=== PATIENT | female | born 1950 | race Caucasian/White ===

== ENCOUNTER → 2017-11-05 | Day surgery (SDC) | payer MEDICARE ==
[~2017-11-05] VITALS: Ht 154.9 cm; Wt 65.0 kg
[~2017-11-05] MED LIST: *ONDANSETRON 4 MG VIAL PERIprocedural Use ONLY ONE; AMLO5 PO; AMPH1TAB47 PO; BACITRACIN TOP OINT 15 GM TUBE ONE; BUPIVACAINE/EPINEPHRINE 0.25% 50 ML VIAL ONE; BUPR150XL PO; CHLORHEXIDINE GLUCONATE 2 % 1 PACK (2 CLOTHS) TOPICAL PRN; CLINDAMYCIN 900/NS 100 ML IV SCH; DULC5TAB PO; EPINEPHrine HCL (1:1000) 30 MG/30 ML VIAL ONE; EPINEPHrine HCL PF/SF (1:1000) 1 MG/ML AMP I-OCULAR ONE; FAMOTIDINE 20 MG/2 ML VIAL ONE; FENO145T2 PO; HYDR-3516 PO; LABETALOL HCL 100 MG/20 ML VIAL IV ONE; LACTATED RINGER'S 1000 ML IV PRN; LEVO.05 PO; LEXA10TA PO; LIDOCAINE 1%/EPINEPHrine 1:100,000 SOLN 50 ML VIAL ONE; LINA290C PO; METF-758; METH1CHW3; METOPROLOL TARTRATE 25 MG TAB PO PRN; MIDAZOLAM HCL 2 MG/2 ML VIAL ONE; MILN100 PO; PANT40TA3 PO; POVIDONE IODINE 5% (ANTISEPSIS KIT) 4 APPLICATIONS EACH NARE PRN; PROPOFOL 200 MG/20 ML AMP IV ONE; ROPI1TAB PO; SODIUM BICARBONATE 8.4% INJ 50 ML ONE; SODIUM CHLORID 0.9% 500 ML IV PRN; SODIUM CHLORIDE 0.9% INJ 100 ML ONE; TEMA30CA PO
[2017-11-05 09:23] VITALS: TEMP 97.7
--- NOTE | 2017-11-05 09:37 | PD.OP ---
Operative Report Bilateral Blepharochalasis and mild levator ptosis, Right more than left Postoperative Diagnosis: Bilateral Blepharochalasis and mild levator ptosis, Right more than left Procedure: Bilateral Levator plication and blepharoplasties Anesthesia: IV sedation and local Surgeon: Carmine Khan Geoscientist(s): RN Resident Surgeon: none Operation and Findings: Patient's both upper eyelids were marked preoperatively in holding area in sitting position, brought to the OR IV sedation was started and Lidocaine 1% with epi 4 cc, 0.5 cc epi 1:1000, and 1 cc Sodium bicarbonate injected total Prep and drape done Time out completed Patient had a brief period of high blood pressure spike - it was allowed to settle down and the anesthesiologist also gave her some beta freeman. Surgery was started on right side, Marked skin ellipse and underlying orbicularis were excised down to the orbital septum Lower part of the eyelid was placed on suture traction lightly Orbital septum was opened from medial to lateral , exposing the medial and the middle fat pads, The lacrimal gland was avoided. Orbital fat pads were anesthetized first and carefully removed at the surface level without pulling; with low power coag cautery. No active bleeding encountered. Tarsal plate upper border was dissected clean, 5/0 Prolene suture was placed between the tarsal plate edge and levator aponeurosis just below the middle fat pad and gradually tightened while releasing the lower traction suture. One additional suture was placed on either side of this suture. Patient was asked to open and close the eyelids to verify the improvement and range of the levator. Patient did not feel any corneal sensation from the sutures. Orbital septum was approximated with single 5/0 Vicryl and the lid skin was closed with 5/0 plain gut, keeping the medial end long, to be taped to the glabella at the end of surgery. Similar procedure was completed on the left side as well. Both sides had excellent improvement and symmetry. Approx 2 mm elevation was noted from the preoperative position. Patient remained stable, minimal bleeding, no complications, Carmine Khan MD Nov 05, 2017 09:37
[2017-11-05 10:55] VITALS: BP 95/53; PULSE 83; RESP 16; O2SAT 97
== END | disposition home or self-care (01) ==
LOC: PHSDC 06:16
PROVIDERS: ATTEND Plastic Surgery
DX: H02.31 Blepharochalasis right upper eyelid (principal); H02.34 Blepharochalasis left upper eyelid; I10 Essential (primary) hypertension
CPT/HCPCS: 00103; 67904; J0171; J2250; J2405; J7120

== ENCOUNTER 2017-12-24 14:08 | Observation (INO) | payer MEDICARE ==
[~2017-12-24] VITALS: Ht 154.9 cm; Wt 63.6 kg
[~2017-12-24 14:08] MED LIST changes: -*ONDANSETRON 4 MG VIAL PERIprocedural Use ONLY ONE; -BACITRACIN TOP OINT 15 GM TUBE ONE; -BUPIVACAINE/EPINEPHRINE 0.25% 50 ML VIAL ONE; -BUPR150XL PO; -CHLORHEXIDINE GLUCONATE 2 % 1 PACK (2 CLOTHS) TOPICAL PRN; -CLINDAMYCIN 900/NS 100 ML IV SCH; -EPINEPHrine HCL (1:1000) 30 MG/30 ML VIAL ONE; -EPINEPHrine HCL PF/SF (1:1000) 1 MG/ML AMP I-OCULAR ONE; -FAMOTIDINE 20 MG/2 ML VIAL ONE; -LABETALOL HCL 100 MG/20 ML VIAL IV ONE; -LACTATED RINGER'S 1000 ML IV PRN; -LEXA10TA PO; -LIDOCAINE 1%/EPINEPHrine 1:100,000 SOLN 50 ML VIAL ONE; -METOPROLOL TARTRATE 25 MG TAB PO PRN; -MIDAZOLAM HCL 2 MG/2 ML VIAL ONE; -MILN100 PO; -POVIDONE IODINE 5% (ANTISEPSIS KIT) 4 APPLICATIONS EACH NARE PRN; -PROPOFOL 200 MG/20 ML AMP IV ONE; -SODIUM BICARBONATE 8.4% INJ 50 ML ONE; -SODIUM CHLORID 0.9% 500 ML IV PRN; -SODIUM CHLORIDE 0.9% INJ 100 ML ONE; -TEMA30CA PO
[2017-12-24 14:23] VITALS: BP 114/68; PULSE 74; RESP 18; TEMP 98.2; O2SAT 96
--- NOTE | 2017-12-24 15:05 | PD ---
HPI Chief Complaint: Fall Time Seen by Provider: 15:04 Travel History International Travel<30 days: No Contact w/Intl Traveler<30days: No Traveled to known affect area: No History of Present Illness HPI 67-year-old female presents to the emergency department with complaint of right elbow pain, right shoulder pain, right knee pain after tripping over a curb in a parking lot and falling today. Denies hitting her head or loss of consciousness. Denies neck pain or back pain. Denies chest pain, shortness of breath, abdominal pain. Reports nausea without vomiting. Denies paresthesias, loss of sensation to the affected extremities. Rates pain 10/10 especially with movement. Better at rest. Throbbing and aching in sensation. Has not taken any medication or tried any treatments to alleviate her symptoms. Does have her right arm in a self-made sling. History of Raynaud, Lyme disease, fibromyalgia, diabetes type 2 and takes metformin. Allergies to codeine and Ancef. Dr. Edwards is primary care provider. Has no other medical complaints. No other modifying factors or associated signs and symptoms. Patient tripped and fell in a parking lot She reports left elbow pain from fall No head injury or LOC No chest pain or abdominal pain PFSH Past Medical History Blood Disorders: No Anxiety: Yes Cancer: No Cardiovascular Problems: Yes (HYPERLIPIDEMIA) Diabetes: Yes (TYPE II) Patient Takes Glucophage: Yes Diminished Hearing: No Endocrine: Yes Gastrointestinal Disorders: Yes (GERD;GASTROPARESIS; IBS) GERD: Yes Genitourinary: Yes ((pt denies)) Hepatitis: No Hiatal Hernia: No Hypertension: Yes Immune Disorder: Yes (FIBROMYALGIA; REYNAUDS) Medical other: Yes (DYSPHAGIA; HX OF LYME DISEASE) Musculoskeletal: Yes (OA) Neurologic: Yes (DIABETIC NEUROPATHY (pt denies)) Psychiatric: Yes (DEPRESSION;ADD) Reproductive: No Respiratory: Yes (SINUSITIS;SEASONAL ALLERGIES) Immunizations Current: Yes (HEPATITIS) Thyroid Disease: Yes (HYPERTHYROID) Tetanus Vaccination: Unknown ?: Not Menopausal: Yes Past Surgical History Abdominal Surgery: No AICD: No Body Medical Devices: NONE Cardiac Surgery: No Ear Surgery: No Endocrine Surgery: No Eye Surgery: Yes (BILAT YAG) Genitourinary Surgery: No Gynecologic Surgery: Yes (HYSTERECTOMY; ANT.COLPORRHAPHY; REPAIR OF CYSTOCELE) Hysterectomy: Yes Joint Replacement: No Neurologic Surgery: No Oral Surgery: Yes (SINUS SX) Pacemaker: No Thoracic Surgery: No Other Surgery: Yes Social History Alcohol Use: Yes (occ) Tobacco Use: No Substance Use: No Allergies-Medications (Allergen,Severity, Reaction): Coded Allergies: cefazolin (Unverified Allergy, Severe, Burning, 12/24/17) burning on face and head codeine (Unverified Allergy, Severe, hives, 12/24/17) MILD REACTION penicillin G (Unverified Allergy, Severe, ITCHING, 12/24/17) MILD REACTION Reported Meds & Prescriptions Reported Meds & Active Scripts Active Hydrocodone-Acetaminophen 5-325 mg Tab 1 Tab PO Q4H PRN 5 Days Reported Metformin HCl ER (Metformin HCl) 1,000 Mg [id number] Methylphenidate (Methylphenidate HCl) 10 Mg Chew 20 Amphetamine-Dextroamphetamine 15 Mg Tab 15 Mg PO DAILY Avoid late evening doses. Space doses at least 4 to 6 hours if more than once/day dosing. Fenofibrate 145 Mg Tab 145 Mg PO DAILY Dulcolax DR (Bisacodyl) 5 Mg Tabdr 5 Mg PO DAILY PRN Linzess (Linaclotide) 290 Mcg Cap 290 Mcg PO DAILY Pantoprazole (Pantoprazole Sodium) 40 Mg Tab 40 Mg PO BID Norvasc (Amlodipine Besylate) 5 Mg Tab 5 Mg PO DAILY Ropinirole 1 Mg Tab 1 Mg PO BID Synthroid (Levothyroxine Sodium) 50 Mcg Tab 50 Mcg PO DAILY Review of Systems Except as stated in HPI: all other systems reviewed are Neg Physical Exam Narrative GENERAL: Well-nourished, well-developed female patient, in no acute distress SKIN: Warm and dry. HEAD: Atraumatic. Normocephalic. EYES: Pupils equal and round. No scleral icterus. No injection or drainage. ENT: Mucosa pink and moist. Airway patent. NECK: Trachea midline. No midline tenderness on palpation of the cervical spine. Active rotation of the neck greater than 45 to the left and right. CARDIOVASCULAR: Regular rate. RESPIRATORY: No accessory muscle use. GASTROINTESTINAL: Flat. MUSCULOSKELETAL: Right elbow with edema; without erythema or ecchymosis; with tenderness on palpation; with decreased clinical orthoptist strength; unable to assess range of motion secondary to patient guarding; sensory intact; 2+ radial pulse. Right Upper extremity supple and nontense with 2+ radial pulse and sensory intact. Right knee with tenderness on palpation patient to the patellar and lateral aspect; with minimal edema; abrasion noted; without erythema, with ecchymosis; with flexion to 90 and joint stable with negative drawer test. Unable to assess right shoulder range of motion; tenderness on palpation to the right upper scapular area of the back. right lower extremity is supple and nontender with 2+ pedal pulse and sensory intact. No obvious deformities. No clubbing. No cyanosis. No edema. BACK: No midline tenderness on palpation of the cervical, thoracic, lumbar spine. Patient standing at bedside in the room. NEUROLOGICAL: Awake and alert. Oriented 3. No obvious cranial nerve deficits. Motor grossly within normal limits. Normal speech. PSYCHIATRIC: Appropriate mood and affect; insight and judgment normal. Data Data Last Documented VS Vital Signs Date Time Temp Pulse Resp B/P (MAP) Pulse Ox O2 Delivery O2 Flow Rate FiO2 12/24/17 14:23 98.2 74 18 114/68 (83) 96 Orders Orders Humerus (Min 2vws) (12/24/17 ) Elbow, Limited (Ap&Lat) (12/24/17 ) Shoulder, Limited(2vws) (12/24/17 ) Knee, Complete (4vws) (12/24/17 ) Oxycodone-Acetamin 5-325 Mg (Percocet (12/24/17 15:30) Ondansetron Odt (Zofran Odt) (12/24/17 15:30) Splint Or Brace Apply/Monitor (12/24/17 15:29) Sling Cradle Arm (12/24/17 ) Ice/Cold Pack (12/24/17 15:29) Complete Blood Count With Diff (12/24/17 15:41) Comprehensive Metabolic Panel (12/24/17 15:41) Prothrombin Time / Inr (Pt) (12/24/17 15:41) Act Partial Throm Time (Ptt) (12/24/17 15:41) Iv Access Insert/Monitor (12/24/17 15:41) Sodium Chloride 0.9% Flush (Ns Flush) (12/24/17 15:45) Electrocardiogram (12/24/17 15:41) Chest, Single Ap (12/24/17 15:41) Npo After Midnight W/ Po Meds (12/24/17 Dinner) Consult Orthopedic (12/24/17 ) Admit Order (Ed Use Only) (12/24/17 15:52) MDM Medical Decision Making Medical Screen Exam Complete: Yes Emergency Medical Condition: Yes Medical Record Reviewed: Yes Differential Diagnosis Fall, fracture, sprain, contusion, abrasion Narrative Course 67-year-old female with right elbow pain, right shoulder pain, right knee pain after mechanical fall today. Denies hitting her head or loss of consciousness. Denies neck pain or back pain. Right knee x-ray, right elbow x-ray, right humerus x-ray, right shoulder x-ray ordered in triage. 1525: Right elbow x-ray concludes comminuted and markedly displaced/ intra-articular fracture of the olecranon. Right humerus x-ray, right knee x- ray, right shoulder x-ray are all unremarkable. Findings discussed with the patient. 1527: Call placed to on-call orthopedic surgeon. 1540: I spoke woptDr. Tammi Simeon's, PA. Splint ordered. Preop orders ordered. 1547: I spoke with Dr. Langston, [facility] and report was given for patient admission. Physician Communication Physician Communication Dr. Langston, [facility] CLAIR CamachoC (Dr. Cadena) Diagnosis Primary Impression: Fall Qualified Codes: W19.XXXA - Unspecified fall, initial encounter Additional Impressions: Elbow fracture, right Qualified Codes: S42.401A - Unspecified fracture of lower end of right humerus , initial encounter for closed fracture Contusion of right knee Qualified Codes: S80.01XA - Contusion of right knee, initial encounter Right shoulder injury Qualified Codes: S49.91XA - Unspecified injury of right shoulder and upper arm , initial encounter Admitting Information Admitting Physician Requests: Observation Nathalie Hamm Dec 24, 2017 15:05
--- NOTE | 2017-12-24 15:12 | RADRPT ---
EXAM DATE/TIME: 12/24/2017 14:44 [facility] COMPARISON: No previous studies available for comparison. INDICATIONS : Fall. Right elbow pain. MEDICAL HISTORY : None. SURGICAL HISTORY : None. ENCOUNTER: Initial ACUITY: 1 day PAIN SCORE: 10/10 LOCATION: Right elbow, olecranon FINDINGS: Two view examination of the right humerus demonstrates no evidence of fracture or dislocation. Bony mineralization is normal. The soft tissue structures are intact. CONCLUSION: Intact right humerus. Florentino Javier MD on December 24, 2017 at 15:10 Board Certified Radiologist. This report was verified electronically.
--- NOTE | 2017-12-24 15:14 | RADRPT ---
EXAM DATE/TIME: 12/24/2017 14:47 [facility] COMPARISON: No previous studies available for comparison. INDICATIONS : Fall. Right elbow pain. MEDICAL HISTORY : None. SURGICAL HISTORY : None. ENCOUNTER: Initial ACUITY: 1 day PAIN SCORE: 10/10 LOCATION: Right elbow, olecranon FINDINGS: Comminuted fracture is seen of the olecranon. There are 2 main fracture fragments and the largest has approximately 3.5 cm of proximal displacement. Proximal radius and distal humerus are intact. No sub luxation. CONCLUSION: Comminuted and markedly displaced/ intra-articular fracture of the olecranon. Florentino Javier MD on December 24, 2017 at 15:11 Board Certified Radiologist. This report was verified electronically.
--- NOTE | 2017-12-24 15:15 | RADRPT ---
EXAM DATE/TIME: 12/24/2017 14:55 [facility] COMPARISON: No previous studies available for comparison. INDICATIONS : Fall. Right elbow pain radiating proximally. MEDICAL HISTORY : None. SURGICAL HISTORY : None. ENCOUNTER: Initial ACUITY: 1 day PAIN SCORE: 10/10 LOCATION: Right elbow, olecranon FINDINGS: Two view examination of the right shoulder demonstrates no evidence of fracture or dislocation. The glenohumeral and acromioclavicular joints are maintained. Bony mineralization is normal. CONCLUSION: Intact right shoulder. Florentino Javier MD on December 24, 2017 at 15:12 Board Certified Radiologist. This report was verified electronically.
--- NOTE | 2017-12-24 15:15 | RADRPT ---
EXAM DATE/TIME: 12/24/2017 15:02 [facility] COMPARISON: No previous studies available for comparison. INDICATIONS : Fell today at the store. MEDICAL HISTORY : None. SURGICAL HISTORY : None. ENCOUNTER: Initial ACUITY: 1 day PAIN SCORE: 5/10 LOCATION: Right knee FINDINGS: Four view examination of the right knee demonstrates no evidence of fracture or dislocation. Bony mi neralization is normal. The articular surfaces are intact. The suprapatellar soft tissues have a no rmal configuration. CONCLUSION: Intact right knee. Florentino Javier MD on December 24, 2017 at 15:13 Board Certified Radiologist. This report was verified electronically.
[2017-12-24] MEDS ORDERED: oxyCODONE/ACETAMINOPHEN 5 MG/325 MG TAB PO ONE (15:30)
[2017-12-24] MEDS ORDERED: ONDANSETRON ODT 4 MG TAB PO ONE (15:30)
[2017-12-24] MEDS ORDERED: SODIUM CHLORIDE 0.9% FLUSH 10 ML FLUSH IV FLUSH PRN ×2 (15:45→16:00)
[2017-12-24] MEDS ORDERED: SODIUM CHLOR 0.9% 1000 ML INJ 1,000 ML IV SCH ×2 (15:53→23:00)
[2017-12-24] MEDS ORDERED: METF500T PO (16:00)
[2017-12-24] MEDS ORDERED: MAGNESIUM HYDROXIDE SUSP 30 ML CUP PO PRN (16:00)
[2017-12-24] MEDS ORDERED: NALOXONE HCL 0.4 MG/ML AMP IV PUSH PRN (16:00)
[2017-12-24] MEDS ORDERED: BISACODYL EC 5 MG TABEC PO PRN (16:00)
[2017-12-24] MEDS ORDERED: ONDANSETRON HCL 4 MG/2 ML VIAL IVP PRN (16:00)
[2017-12-24] MEDS ORDERED: ACETAMINOPHEN 325 MG TAB PO PRN (16:00)
[2017-12-24] MEDS ORDERED: ACETAMINOPHEN/HYDROcodone 325 MG/5 MG TAB PO PRN (16:00)
--- NOTE | 2017-12-24 16:03 | HHI.HP ---
HPI Service [facility] Hospitalists Primary Care Physician Robert Edwards MD Admission Diagnosis Fall, right olecranon fracture Chief Complaint: shoulder and knee pain after fall Travel History International Travel<30 Days: No Contact w/Intl Traveler <30 Da: No Traveled to Known Affected Are: No History of Present Illness This is a 67 year old female patient with past medical history which includes fibromyalgia, Lyme disease status post treatment, Jaleel's syndrome, attention deficit disorder, constipation, irritable bowel syndrome, GERD, restless leg syndrome, diabetes mellitus type 2. Patient was in her normal state of health today walking through the parking lot to go shopping tripped over a curb stop falling on her right side. After the fall patient experienced pain in her right shoulder, arm and knee. Patient presented to the emergency department for further evaluation and treatment. Patient rates her pain 10 out of 10 initially reports it is improved after PO Percocet. Patient describes the pain as an aching throbbing sensation. Patient denies any loss of sensation, paresthesias, chest pain, palpitations, SOB, fevers or chills. X-ray right elbow reveals communicated and markedly displaced/ intra- articular fracture of the olecranon Review of Systems Constitutional: DENIES: Fatigue, Fever, Chills Respiratory: DENIES: Cough, Sputum production, Shortness of breath Cardiovascular: DENIES: Chest pain, Palpitations, Dyspnea on Exertion Gastrointestinal: DENIES: Abdominal pain, Nausea, Vomiting Neurologic: DENIES: Headache, Localized weakness, Speech Problems Psychiatric: DENIES: Anxiety, Confusion, Depression Past Family Social History Past Medical History fibromyalgia, Lyme disease status post treatment, Jaleel's syndrome, attention deficit disorder, constipation, irritable bowel syndrome, GERD, restless leg syndrome, diabetes mellitus type 2 Past Surgical History Cystocele repair A-P Colporrhaphy pelvic repair Hysterectomy Colonoscopy Sinus surgery Reported Medications Hydrocodone-Acetaminophen 5-325 mg Tab 1 Tab PO Q4H PRN 5 Days Metformin (Metformin HCl) 500 Mg Tab 500 Mg PO BIDPC Amphetamine-Dextroamphetamine 15 Mg Tab 15 Mg PO DAILY Avoid late evening doses. Space doses at least 4 to 6 hours if more than once/day dosing. Fenofibrate 145 Mg Tab 145 Mg PO DAILY Dulcolax DR (Bisacodyl) 5 Mg Tabdr 5 Mg PO DAILY PRN Linzess (Linaclotide) 290 Mcg Cap 290 Mcg PO DAILY Pantoprazole (Pantoprazole Sodium) 40 Mg Tab 40 Mg PO DAILY Norvasc (Amlodipine Besylate) 5 Mg Tab 5 Mg PO DAILY Ropinirole 1 Mg Tab 1 Mg PO HS Synthroid (Levothyroxine Sodium) 50 Mcg Tab 50 Mcg PO DAILY Allergies: Coded Allergies: cefazolin (Unverified Allergy, Severe, Burning, 12/24/17) burning on face and head codeine (Unverified Allergy, Severe, hives, 12/24/17) MILD REACTION penicillin G (Unverified Allergy, Severe, ITCHING, 12/24/17) MILD REACTION Family History reviewed and noncontributory Social History Tobacco use: occasional cigar socially ETOH use: socially not on a daily basis Denies illicit drug use. Does use medical marijuana Physical Exam Vital Signs Vital Signs Date Time Temp Pulse Resp B/P (MAP) Pulse Ox O2 Delivery O2 Flow Rate FiO2 12/24/17 14:23 98.2 74 18 114/68 (83) 96 Physical Exam GENERAL: This is a well-nourished, well-developed patient, in no apparent distress. SKIN: sling right upper arm, abrasion right knee HEAD: Atraumatic. Normocephalic. No temporal or scalp tenderness. EYES: Extraocular motions intact. No scleral icterus. No injection or drainage. CARDIOVASCULAR: Regular rate and rhythm RESPIRATORY: Clear to auscultation. Breath sounds equal bilaterally. GASTROINTESTINAL: Abdomen soft, non-tender, nondistended. No hepato-splenomegaly , or palpable masses. No guarding. MUSCULOSKELETAL: Extremities without clubbing, cyanosis, or edema. No joint tenderness, effusion, or edema noted. No calf tenderness. Negative Homans sign bilaterally. NEUROLOGICAL: Awake and alert. No focal deficits. Motor and sensory grossly within normal limits. Five out of 5 muscle strength in all muscle groups, with the exception of right upper extremity in sling. Normal speech. Imaging Last Impressions Shoulder X-Ray 12/24/17 0000 Signed Impressions: Service Date/Time: Sunday, December 24, 2017 14:55 - CONCLUSION: Intact right shoulder. Florentino Javier MD Knee X-Ray 12/24/17 0000 Signed Impressions: Service Date/Time: Sunday, December 24, 2017 15:02 - CONCLUSION: Intact right knee. Florentino Javier MD Humerus X-Ray 12/24/17 0000 Signed Impressions: Service Date/Time: Sunday, December 24, 2017 14:44 - CONCLUSION: Intact right humerus. Florentino Javier MD Elbow X-Ray 12/24/17 0000 Signed Impressions: Service Date/Time: Sunday, December 24, 2017 14:47 - CONCLUSION: Comminuted and markedly displaced/ intra-articular fracture of the olecranon. Florentino Javier MD Capjameson VTE Risk Assessment Caprini VTE Risk Assessment: Mod/High Risk (score >= 2) Caprini Risk Assessment Model Point Value = 1 Point Value = 2 Point Value = 3 Point Value = 5 Age 41-60 Minor surgery BMI > 25 kg/m2 Swollen legs Varicose veins or History of unexplained or recurrent spontaneous Oral contraceptives or hormone replacement Sepsis (< 1 month) Serious lung disease, including pneumonia (< 1 month) Abnormal pulmonary function Acute myocardial infarction Congestive heart failure (< 1 month) History of inflammatory bowel disease Medical patient at bed rest Age 61-74 Arthroscopic surgery Major open surgery (> 45 min) Laparoscopic surgery (> 45 min) Malignancy Confined to bed (> 72 hours) Immobilizing plaster cast Central venous access Age >= 75 History of VTE Family history of VTE Factor V Leiden Prothrombin [id number] Lupus anticoagulant Anticardiolipin antibodies Elevated serum homocysteine Heparin-induced thrombocytopenia Other congenital or acquired thrombophilia Stroke (< 1 month) Elective arthroplasty Hip, pelvis, or leg fracture Acute spinal cord injury (< 1 month) Prophylaxis Regimen Total Risk Factor Score Risk Level Prophylaxis Regimen 0-1 Low Early ambulation 2 Moderate Order ONE of the following: *Sequential Compression Device (SCD) *Heparin 5000 units SQ BID 3-4 Higher Order ONE of the following medications: *Heparin 5000 units SQ TID *Enoxaparin/Lovenox 40 mg SQ daily (WT < 150 kg, CrCl > 30 mL/min) *Enoxaparin/Lovenox 30 mg SQ daily (WT < 150 kg, CrCl > 10-29 mL/min) *Enoxaparin/Lovenox 30 mg SQ BID (WT < 150 kg, CrCl > 30 mL/min) AND/OR *Sequential Compression Device (SCD) 5 or more Highest Order ONE of the following medications: *Heparin 5000 units SQ TID (Preferred with Epidurals) *Enoxaparin/Lovenox 40 mg SQ daily (WT < 150 kg, CrCl > 30 mL/min) *Enoxaparin/Lovenox 30 mg SQ daily (WT < 150 kg, CrCl > 10-29 mL/min) *Enoxaparin/Lovenox 30 mg SQ BID (WT < 150 kg, CrCl > 30 mL/min) AND *Sequential Compression Device (SCD) Assessment and Plan Problem List: (1) Olecranon fracture ICD Codes: S52.023A - Displaced fracture of olecranon process without intraarticular extension of unspecified ulna, initial encounter for closed fracture Plan: Right olecranon process fracture Fall X-ray right elbow reveals communicated and markedly displaced/ intra- articular fracture of the olecranon currently in sling consult to orthopedic surgery plan surgical intervention in AM NPO after midnight Gatzke and Morphine IV as needed for pain Right Humerus X Ray: intact right humerus Right Shoulder X ray: Intact right shoulder Right knee X ray: Intact right knee Diabetes mellitus continue home metformin Diabetic diet NPO after midnight Acc checks ACHS with SSI coverage Raynaud syndrome continue home Amlodipine 5mg PO daily GERD continue home Protonix 40 mg PO daily IBS continue home Linzess Hypothyroidism Continue home Levothyroxine 50 mcg PO daily Restless leg syndrome Continue home Ropinirole DVT prophylaxis with SCDs (2) Raynauds syndrome ICD Codes: I73.00 - Raynaud's syndrome without gangrene (3) GERD (gastroesophageal reflux disease) ICD Codes: K21.9 - Gastro-esophageal reflux disease without esophagitis (4) IBS (irritable bowel syndrome) ICD Codes: K58.9 - Irritable bowel syndrome without diarrhea (5) Diabetes mellitus ICD Codes: E11.9 - Type 2 diabetes mellitus without complications (6) Hypothyroidism ICD Codes: E03.9 - Hypothyroidism, unspecified Maritza Mcclure Dec 24, 2017 16:03
[2017-12-24] MEDS ORDERED: GLUCAGON 1 MG/ML VIAL OTHER PRN (16:15)
[2017-12-24] MEDS ORDERED: DEXTROSE 50% IN WATER 50 ML VIAL(D50) IV PUSH PRN (16:15)
[2017-12-24] MEDS ORDERED: LEVA500T33 PO (16:52)
[2017-12-24] MEDS ORDERED: CYMB30CA PO (16:52)
[2017-12-24] MEDS: INSULIN ASPART SUPPLEMENTAL SCALE SQ SCH ×2 (17:00→21:00)
--- NOTE | 2017-12-24 17:00 | RADRPT ---
EXAM DATE/TIME: 12/24/2017 16:33 [facility] COMPARISON: No previous studies available for comparison. INDICATIONS : Evaluate for pneumonia, pneumothorax, and or communicable disease. MEDICAL HISTORY : None. SURGICAL HISTORY : None. ENCOUNTER: Initial ACUITY: 1 day PAIN SCORE: 0/10 LOCATION: Bilateral chest FINDINGS: A single view of the chest demonstrates the lungs to be symmetrically aerated without evidence of mas s, infiltrate or effusion. The cardiomediastinal contours are unremarkable. Osseous structures are intact. CONCLUSION: No evidence of acute cardiopulmonary disease. Florentino Javier MD on December 24, 2017 at 16:57 Board Certified Radiologist. This report was verified electronically.
[2017-12-24 17:04] VITALS: BP 112/57; PULSE 80; RESP 16; O2SAT 96
[2017-12-24 17:30] LABS: AUTOMATED NEUTROPHIL # 8.2 TH/MM3 (1.8-7.7); BASOPHIL # 0.1 TH/MM3 (0-0.2); BASOPHIL % 0.6 % (0.0-2.0); EOSINOPHIL # 0.1 TH/MM3 (0-0.4); EOSINOPHIL % 0.5 % (0.0-4.0); HEMATOCRIT 38.1 % (35.0-46.0); HEMOGLOBIN 13.1 GM/DL (11.6-15.3); LYMPH % 12.4 % (9.0-44.0); LYMPHOCYTE # 1.2 TH/MM3 (1.0-4.8); MEAN CELL VOLUME 94.5 FL (80.0-100.0); MEAN CORPUSCULAR HEMOGLOBIN 32.6 PG (27.0-34.0); MEAN CORPUSCULAR HGB CONC 34.5 % (32.0-36.0); MEAN PLATELET VOLUME 9.5 FL (7.0-11.0); MONO % 4.7 % (0.0-8.0); MONOCYTE # 0.5 TH/MM3 (0-0.9); NEUT % 81.8 % (16.0-70.0); PLATELET COUNT 236 TH/MM3 (150-450); RED BLOOD COUNT 4.03 MIL/MM3 (4.00-5.30); RED CELL DISTRIBUTION WIDTH 13.4 % (11.6-17.2)
[2017-12-24] MEDS ORDERED: ROSU1TAB4 PO (17:32)
[2017-12-24] MEDS: metFORMIN HCL 500 MG TAB PO SCH (17:36)
[2017-12-24] MEDS: MORPHINE SULFATE 4 MG/ML INJ IV PUSH PRN ×2 (17:37→21:23)
[2017-12-24 17:43] LABS: INTERNATIONAL NORMALIZED RATIO 1.2 RATIO; PROTHROMBIN TIME - PATIENT 12.5 SEC (9.8-11.6)
[2017-12-24 17:56] LABS: ALBUMIN 3.7 GM/DL (3.4-5.0); AST (GOT) 70 U/L (15-37); BICARBONATE 26.9 MEQ/L (21.0-32.0); BLOOD UREA NITROGEN 16 MG/DL (7-18); CHLORIDE 106 MEQ/L (98-107); CREATININE 0.83 MG/DL (0.50-1.00); GLOMERULAR FILTRATION RATE 69 ML/MIN (>89); GLUCOSE,RANDOM 109 MG/DL (74-106); SODIUM (NA) 139 MEQ/L (136-145)
[2017-12-24 18:01] LABS: ALKALINE PHOSPHATASE 88 U/L (45-117); ALT (GPT) 35 U/L (10-53); TOTAL BILIRUBIN ADULT 0.3 MG/DL (0.2-1.0); TOTAL PROTEIN 6.8 GM/DL (6.4-8.2)
[2017-12-24 20:05] VITALS: BP 114/57; PULSE 84; RESP 17; TEMP 98.3; O2SAT 97
[2017-12-24] MEDS ORDERED: DOCUSATE SODIUM 50 MG/SENNA 8.6 MG TAB PO SCH (21:00)
[2017-12-24] MEDS ORDERED: CHLORHEXIDINE GLUCONATE 2 % 1 PACK (2 CLOTHS) TOPICAL PRN (21:15)
[2017-12-24] MEDS ORDERED: METOPROLOL TARTRATE 25 MG TAB PO PRN (21:15)
[2017-12-24] MEDS ORDERED: LACTATED RINGER'S 1000 ML IV PRN (21:15)
[2017-12-24] MEDS ORDERED: SODIUM CHLORID 0.9% 500 ML IV PRN (21:15)
[2017-12-24] MEDS ORDERED: POVIDONE IODINE 5% (ANTISEPSIS KIT) 4 APPLICATIONS EACH NARE PRN (21:15)
[2017-12-24] MEDS: SODIUM CHLORIDE 0.9% FLUSH 10 ML FLUSH IV FLUSH SCH (21:21)
[2017-12-24] MEDS: ACETAMINOPHEN/HYDROcodone 325 MG/10 MG TAB PO PRN (22:52)
[2017-12-25 00:10] VITALS: BP 101/53; PULSE 71; RESP 16; TEMP 97.7; O2SAT 95
[2017-12-25] MEDS: MORPHINE SULFATE 4 MG/ML INJ IV PUSH PRN ×2 (04:22→15:15)
[2017-12-25 05:00] VITALS: BP 108/59; PULSE 65; RESP 17; TEMP 97.6; O2SAT 98
[2017-12-25] MEDS ORDERED: LEVOTHYROXINE SODIUM 50 MCG TAB PO SCH (06:00)
--- NOTE | 2017-12-25 06:40 | PD.ORT.PN ---
Subjective Subjective Remarks s/p fall in parking lot right elbow pain. reports right knee pain but minimal. Objective Vitals Vital Signs Date Time Temp Pulse Resp B/P (MAP) Pulse Ox O2 Delivery O2 Flow Rate FiO2 12/25/17 00:10 97.7 71 16 101/53 (69) 95 12/24/17 20:05 98.3 84 17 114/57 (76) 97 12/24/17 17:14 12/24/17 17:04 80 16 112/57 (75) 96 Room Air 12/24/17 14:23 98.2 74 18 114/68 (83) 96 Result Diagram: 12/24/17 1600 12/24/17 1600 Other Results Laboratory Tests Test 12/24/17 16:00 Prothromb Time International Ratio 1.2 RATIO Prothrombin Time 12.5 SEC (9.8-11.6) Imaging Last 24 hours Impressions Chest X-Ray 12/24/17 1541 Signed Impressions: Service Date/Time: Sunday, December 24, 2017 16:33 - CONCLUSION: No evidence of acute cardiopulmonary disease. Florentino Javier MD Objective Remarks RUE: +long arm splint. NVI with good motion of fingers and wrist. RLE: full motion of knee. bruising over patella. nontender. Assessment & Plan Assessment and Plan 1) Right Olecranon Fx -npo -consents -surgery today with Tammi -possibly home later today if doing well post op Jayden Trimble/Spa Supervisor DAVID Dec 25, 2017 06:40
[2017-12-25] MEDS ORDERED: HYDR-3580 PO (06:41)
[2017-12-25] MEDS ORDERED: GENTAMICIN SULFATE 80 MG/2 ML VIAL ONE (07:19)
[2017-12-25] MEDS ORDERED: VANCOMYCIN HCL 1000 MG VIAL ONE (07:20)
[2017-12-25] MEDS ORDERED: KETAMINE HCL 500 MG/10 ML VIAL ONE (07:20)
[2017-12-25 07:24] LABS: AUTOMATED NEUTROPHIL # 6.1 TH/MM3 (1.8-7.7); BASOPHIL % 0.4 % (0.0-2.0); EOSINOPHIL # 0.1 TH/MM3 (0-0.4); EOSINOPHIL % 1.2 % (0.0-4.0); HEMATOCRIT 37.1 % (35.0-46.0); HEMOGLOBIN 12.9 GM/DL (11.6-15.3); LYMPH % 28.9 % (9.0-44.0); LYMPHOCYTE # 2.8 TH/MM3 (1.0-4.8); MEAN CELL VOLUME 95.4 FL (80.0-100.0); MEAN CORPUSCULAR HEMOGLOBIN 33.3 PG (27.0-34.0); MEAN CORPUSCULAR HGB CONC 34.9 % (32.0-36.0); MEAN PLATELET VOLUME 9.4 FL (7.0-11.0); MONO % 6.5 % (0.0-8.0); MONOCYTE # 0.6 TH/MM3 (0-0.9); PLATELET COUNT 204 TH/MM3 (150-450); RED BLOOD COUNT 3.89 MIL/MM3 (4.00-5.30); RED CELL DISTRIBUTION WIDTH 13.5 % (11.6-17.2); WHITE BLOOD COUNT 9.7 TH/MM3 (4.0-11.0)
[2017-12-25] MEDS ORDERED: CLINDAMYCIN PHOS 600 MG/4 ML VIAL ONE (07:36)
--- NOTE | 2017-12-25 07:48 | MB ---
cc: Kai Cadena MD DATE: 12/25/2017 REASON FOR CONSULTATION: Right olecranon fracture CONSULTING PHYSICIAN: Dr. Langston. HISTORY OF PRESENT ILLNESS: The patient is a 67-year-old female who had a fall. She was going shopping, when she tripped over a curb. She landed on her right side. She had a small abrasion on her right knee. She landed mostly on her right elbow. She had immediate right elbow pain. She presented to the Emergency Room where x-rays revealed a displaced right olecranon fracture. She is currently awake and alert, on the orthopedic floor. Her main complaint is her right elbow. Pain is worse with movement and is improved with rest. PAST MEDICAL HISTORY: Fibromyalgia, history of Lyme disease, ADHD, irritable bowel syndrome, reflux, and type 2 diabetes. PAST SURGICAL HISTORY: Cystocele repair, hysterectomy, colonoscopy, and sinus surgery. MEDICATIONS: 1. Hydrocodone 2. Metformin. 3. Nifedipine. 4. Dulcolax. 5. Pantoprazole. 6. Norvasc. 7. Synthroid. ALLERGIES: CEFAZOLIN, CODEINE, AND PENICILLIN. SOCIAL HISTORY: The patient drinks alcohol socially. She uses medical marijuana. She smokes occasional cigars. FAMILY HISTORY: Noncontributory. She denies familial medical problems. REVIEW OF SYSTEMS: The patient denies headache, visual changes, neck pain, chest pain, shortness of breath, abdominal pain, nausea, vomiting, recent weight loss, fevers or chills, numbness or tingling in the extremities. She complains of right elbow pain. The pain is worse with movement. LABORATORY DATA: The patient has a white blood cell count of 10.0, hematocrit of 38.1, and platelet count of 236. INR is 1.2. BUN is 16 and creatinine 0.83. X-RAY STUDIES: X-rays of right elbow were reviewed. X-rays reveal a comminuted right olecranon fracture. There is significant displacement. PHYSICAL EXAMINATION: GENERAL: The patient is a pleasant 67-year-old female. She is awake. She is alert and oriented x 3. She appears well-developed, well-nourished. VITAL SIGNS: Temperature 97.6, pulse 65, respirations 17, blood pressure 108/59, O2 saturations 98% on room air. HEENT: Head: The patient is normocephalic. Pupils are equal. NECK: Soft, nontender. The trachea is in the midline. ABDOMEN: Soft, nontender, and nondistended. EXTREMITIES: Examination of her right arm reveals no tenderness in her shoulder, wrist or fingers. She has intact sensation in all fingers. She has good capillary refill in all fingers. Radial pulse is palpable. She has tenderness to palpation over the elbow. Forearm compartments are soft. Examination of her left arm reveals no pain with shoulder, elbow and wrist motion. She has intact sensation in all fingers. She has good capillary refill at fingers. Skin is intact. Radial pulse is palpable. Examination of her bilateral lower extremities reveals no significant pain with hip, knee or ankle motion. Sensation is intact to both feet. She has good capillary refill in both feet. She does have a superficial abrasion of her right anterior knee. IMPRESSION: 1. Diabetes. 2. Displaced right olecranon fracture. 3. Fibromyalgia. PLAN: The treatment options were discussed with the patient. At this point, I would recommend open reduction and internal fixation of right olecranon with possible allograft bone grafting. Risks of surgery include bleeding, infection, injuries to arteries, nerves or blood vessels, nonunion, malunion, painful hardware, loss of elbow motion, wound complications, need for hardware removal, as well as medical complications associated with anesthesia. All questions were answered. I will plan on surgery today. A mid-level provider in my office, nurse practitioner or PA, may see this patient on a follow-up basis and continue to implement the objective of this plan including: Starting or adjusting medications, injections of muscle, tendon, bursa or joints, cast application, orthotic or brace application, physical therapy, further radiographic studies including x-ray, MRI, CT, ultrasounds or bone scan, vascular studies, neurologic studies, or other specialist consultations, and proceeding with surgical management as appropriate. MD JEFFY Wise/CHAIM , 07:23 AM , 07:46 AM
[2017-12-25 07:54] LABS: BICARBONATE 28.6 MEQ/L (21.0-32.0); CALCIUM 8.7 MG/DL (8.5-10.1); CREATININE 0.73 MG/DL (0.50-1.00)
[2017-12-25] MEDS: INSULIN ASPART SUPPLEMENTAL SCALE SQ SCH ×3 (08:00→17:00)
--- NOTE | 2017-12-25 08:08 | EKG ---
Date Performed: 12/24/2017 Time Performed: 16:58:11 PTAGE: 67 years EKG: Sinus rhythm NORMAL ECG PREVIOUS TRACING : 02/16/2014 11.26 DOCTOR: Rocky Almendarez Interpretating Date/Time 12/25/2017 08:06:24
[2017-12-25] MEDS ORDERED: FENOFIBRATE 145 MG TAB PO SCH (09:00)
[2017-12-25] MEDS ORDERED: [UNRECOGNIZED DRUG - OTHER] PO SCH (09:00)
[2017-12-25] MEDS: metFORMIN HCL 500 MG TAB PO SCH ×2 (09:00→18:21)
[2017-12-25] MEDS ORDERED: amLODIPine BESYLATE 5 MG TAB PO SCH (09:00)
[2017-12-25] MEDS ORDERED: NON-FORMULARY DRUG (Linaclotide (Linzess) 290 MCG) PO SCH (09:00)
[2017-12-25] MEDS ORDERED: DEXTROAMPHETAMINE/AMPHETAMINE 5 MG TAB PO SCH (09:00)
[2017-12-25] MEDS: SODIUM CHLORIDE 0.9% FLUSH 10 ML FLUSH IV FLUSH SCH (09:00)
[2017-12-25] MEDS ORDERED: DOCUSATE SODIUM 50 MG/SENNA 8.6 MG TAB PO SCH (09:00)
[2017-12-25] MEDS ORDERED: PANTOPRAZOLE SOD 40 MG DELAYED RELEASE TAB PO SCH (09:00)
[2017-12-25] MEDS ORDERED: Post-op Orders (for Pharmacy) XX ONE (09:15)
--- NOTE | 2017-12-25 09:15 | PD.OP ---
cc: Kai Chen MD Operative Report Date of Surgery: Dec 25, 2017 Preoperative Diagnosis: Comminuted right olecranon fracture Postoperative Diagnosis: Procedure: Open reduction internal fixation right olecranon Surgeon: Kai Chen Case Coordinator(s): MARIA LUISA Erazo PA-C The surgical procedure was assisted by my physician assistant department manager. My P.A. presence was necessary throughout this case for the manipulation and positioning of the surgical extremity. My P.A. was assisting me throughout the duration of this procedure. The skill set of a physician assistant department manager was medically necessary to complete this procedure. During the surgical case the surgical training specialist was working at the back table and the physician assistant department manager was directly assisting me. Operation and Findings: Implants used: Synthes Patient was seen and evaluated preoperatively. Patient was found to have a displaced comminuted intra-articular right olecranon fracture. The risk and benefits of the surgery were discussed in depth and informed consent was obtained. Risk of surgery include bleeding, infection, painful hardware, wound , case, elbow stiffness, loss of motion, elbow arthritis, injuries to arteries nerves or blood vessels, weakness and numbness of hand, as well as medical complications associated with general anesthesia. All questions were answered. Patient was brought to operating room. IV sedation and anesthesia were administered. Patient was placed into a lateral decubitus position. Timeout procedure was performed. IV antibiotics were administered prior to incision. The operative arm was prepped with alcohol followed by Hibiclens and draped in usual sterile fashion. Procedure began with a 5 inch incision over the olecranon. Subcutaneous tissue dissected with Bovie. Fracture site was visualized. Fascia was elevated around the fracture site. There was mild comminution of the fracture site. Fracture fragments were gently manipulated. There was depression of the articular surface. The articular surface was elevated with a freer elevator. Cancellus bone chips were packed underneath the articular surface for distal support. A fracture tenaculum was used to aid in reduction. Multiple K wires result provisional fixation. A Synthes proximal plate was selected. Plate was provisionally held with K wires 3.5 cortical screws were used to compress plate to bone. Multiple cortical screws were placed in the ulna shaft. Multiple locking screws were placed in the proximal ulna. All screws were predrilled and premeasured for appropriate length. K wires were removed. Final fluoroscopy revealed excellent of fractures well-placed hardware. Articular surface appeared to be in near anatomic alignment. Wound was now thoroughly irrigated. Additional #2 FiberWire suture was placed through the triceps tendon and sutured to the plate for additional stability. Incision was now closed with #1 Vicryl, 3-0 Vicryl, and dylan. Sterile dressings were applied. Patient's placed a well molded well-padded splint. Patient was transferred to recovery in stable condition. Kai Chen MD Dec 25, 2017 09:15
[2017-12-25] MEDS ORDERED: MORPHINE SULFATE 8 MG/ML INJ ONE (09:43)
[2017-12-25] MEDS ORDERED: ACETAMINOPHEN 1000 MG/100 ML 100 ML IV ONE ×2 (09:43→13:00)
[2017-12-25] MEDS ORDERED: DO NOT ADM ANY ANTICOAGULANT DRUGS PRN (09:44)
[2017-12-25] MEDS ORDERED: *ONDANSETRON 4 MG VIAL PERIprocedural Use ONLY ONE (09:53)
--- NOTE | 2017-12-25 09:55 | RADRPT ---
EXAM DATE/TIME: 12/25/2017 08:57 [facility] COMPARISON: No previous studies available for comparison. INDICATIONS : Orif right elbow. MEDICAL HISTORY : None. SURGICAL HISTORY : None. ENCOUNTER: Subsequent ACUITY: 2 days PAIN SCORE: Non-responsive. LOCATION: Right Elbow. FINDINGS: 4 images are recorded digitally the operating room using C-arm during placement of an ulnar olecranon plate. CONCLUSION: Intraoperative images. A Jorge Luis Altamirano MD on December 25, 2017 at 9:52 Board Certified Radiologist. This report was verified electronically.
[2017-12-25] MEDS ORDERED: *diphenhydrAMINE HCL 50 MG/ML VIAL PERIprocedural Use ONLY ONE (09:57)
[2017-12-25] MEDS ORDERED: MIDAZOLAM HCL 2 MG/2 ML VIAL ONE (10:09)
--- NOTE | 2017-12-25 10:33 | HHI.PR ---
Subjective Remarks TO OR FOR ORIF RIGHT OLECRANON Objective Vitals heart reg lung cta abd s/nt ext no edema Vital Signs Date Time Temp Pulse Resp B/P (MAP) Pulse Ox O2 Delivery O2 Flow Rate FiO2 12/25/17 05:00 97.6 65 17 108/59 (75) 98 12/25/17 00:10 97.7 71 16 101/53 (69) 95 12/24/17 20:05 98.3 84 17 114/57 (76) 97 12/24/17 17:14 12/24/17 17:04 80 16 112/57 (75) 96 Room Air 12/24/17 14:23 98.2 74 18 114/68 (83) 96 12/25/17 12/25/17 12/26/17 15:00 23:00 07:00 Intake Total 750 ml Output Total 25 ml Balance 725 ml Other 750 ml Output Estimated Blood Loss 25 ml Result Diagram: 12/25/17 0612 12/25/17 0612 Imaging Last Impressions Shoulder X-Ray 12/24/17 0000 Signed Impressions: Service Date/Time: Sunday, December 24, 2017 14:55 - CONCLUSION: Intact right shoulder. Florentino Javier MD Knee X-Ray 12/24/17 0000 Signed Impressions: Service Date/Time: Sunday, December 24, 2017 15:02 - CONCLUSION: Intact right knee. Florentino Javier MD Humerus X-Ray 12/24/17 0000 Signed Impressions: Service Date/Time: Sunday, December 24, 2017 14:44 - CONCLUSION: Intact right humerus. Florentino Javier MD Elbow X-Ray 12/24/17 0000 Signed Impressions: Service Date/Time: Sunday, December 24, 2017 14:47 - CONCLUSION: Comminuted and markedly displaced/ intra-articular fracture of the olecranon. Florentino Javier MD A/P Problem List: (1) Olecranon fracture ICD Codes: S52.023A - Displaced fracture of olecranon process without intraarticular extension of unspecified ulna, initial encounter for closed fracture Status: Acute Plan: Right olecranon process fracture Fall X-ray right elbow reveals communicated and markedly displaced/ intra- articular fracture of the olecranon currently in sling consulted ortho who took pt to OR today for ORIF of olecranon prn pain meds advance diet dc home when ok with ortho. Diabetes mellitus continue home metformin Diabetic diet NPO after midnight Acc checks ACHS with SSI coverage Raynaud syndrome continue home Amlodipine 5mg PO daily GERD continue home Protonix 40 mg PO daily IBS continue home Linzess Hypothyroidism Continue home Levothyroxine 50 mcg PO daily Restless leg syndrome Continue home Ropinirole DVT prophylaxis with SCDs (2) Raynauds syndrome ICD Codes: I73.00 - Raynaud's syndrome without gangrene Status: Chronic (3) GERD (gastroesophageal reflux disease) ICD Codes: K21.9 - Gastro-esophageal reflux disease without esophagitis Status: Chronic (4) IBS (irritable bowel syndrome) ICD Codes: K58.9 - Irritable bowel syndrome without diarrhea Status: Chronic (5) Diabetes mellitus ICD Codes: E11.9 - Type 2 diabetes mellitus without complications Status: Chronic (6) Hypothyroidism ICD Codes: E03.9 - Hypothyroidism, unspecified Status: Chronic Michael Langston MD Dec 25, 2017 10:33
[2017-12-25] MEDS: ACETAMINOPHEN/HYDROcodone 325 MG/10 MG TAB PO PRN ×2 (10:34→19:01)
[2017-12-25 11:00] VITALS: BP 123/58; PULSE 82; RESP 18; TEMP 97.5; O2SAT 94
--- NOTE | 2017-12-25 13:03 | HHI.FF ---
Face to Face Verification Diagnosis: (1) Elbow fracture, right (2) Contusion of right knee (3) GERD (gastroesophageal reflux disease) (4) IBS (irritable bowel syndrome) Physical Therapy Order: Evaluate and Treat Occupational Therapy Order: Evaluate and Treat (when cleared by Ortho to start OT) Home Health Nursing Order: Nursing assessment with vital signs Home Health Aide Order: To Assist In: Bathing and personal care I have seen patient Angela Parr on 12/25/17. My clinical findings support the need for the requested home health care services because: Limited ability to care for self I certify that my clinical findings support that this patient is homebound because: Post-op weakness Mira Calloway Dec 25, 2017 13:03
[2017-12-25] MEDS ORDERED: ZOFR4TAB PO (13:15)
[2017-12-25 16:33] VITALS: BP 118/56; PULSE 74; RESP 18; TEMP 97.6; O2SAT 96
[2017-12-25 16:41] VITALS: O2SAT 96
[2017-12-25] MEDS ORDERED: DEXAMETHASONE SOD PHOS 4 MG/ML VIAL IV ONE (19:37)
[2017-12-25] MEDS ORDERED: LIDOCAINE HCL 1% PF 5 ML SYRINGE OTHER ONE (19:37)
[2017-12-25] MEDS ORDERED: PHENYLEPH/NS 1000 MCG/10 ML SYR IV ONE (19:37)
[2017-12-25] MEDS ORDERED: ONDANSETRON HCL 4 MG/2 ML VIAL IV ONE (19:37)
[2017-12-25] MEDS ORDERED: PROPOFOL 200 MG/20 ML AMP IV ONE (19:37)
[2017-12-25] MEDS ORDERED: CALCIUM/VITAMIN D 250 MG/125 U TAB PO SCH (21:00)
[2017-12-26] MEDS ORDERED: CHOLECALCIFEROL (VIT D3) 1000 UNIT TAB PO SCH (09:00)
== END 2017-12-25 19:38 | disposition home or self-care (01) ==
LOC: NEPD 14:08 → NEDA 15:54 → N06A 17:24
PROVIDERS: ADMIT Hospitalist; ATTEND Hospitalist
DX: S52.021A Displaced fracture of olecranon process without intraarticular extension of right ulna, initial encounter for closed fracture (principal); S80.01XA Contusion of right knee, initial encounter; M25.511 Pain in right shoulder; M25.521 Pain in right elbow; I10 Essential (primary) hypertension; E78.5 Hyperlipidemia, unspecified; E11.43 Type 2 diabetes mellitus with diabetic autonomic (poly)neuropathy; E03.9 Hypothyroidism, unspecified; E05.90 Thyrotoxicosis, unspecified without thyrotoxic crisis or storm; K21.9 Gastro-esophageal reflux disease without esophagitis; I73.00 Raynaud's syndrome without gangrene; M79.7 Fibromyalgia; K58.9 Irritable bowel syndrome, unspecified; J30.2 Other seasonal allergic rhinitis; G25.81 Restless legs syndrome; F41.9 Anxiety disorder, unspecified; F32.9 Major depressive disorder, single episode, unspecified; F17.290 Nicotine dependence, other tobacco product, uncomplicated; Z79.899 Other long term (current) drug therapy; Z79.84 Long term (current) use of oral hypoglycemic drugs; W01.0XXA Fall on same level from slipping, tripping and stumbling without subsequent striking against object, initial encounter; Y92.481 Parking lot as the place of occurrence of the external cause
CPT/HCPCS: 01740; 24685; 71045; 73030; 73060; 73070; 73080; 73564; 76000; 80048; 80053; 82948; 85025; 85610; 85730; 93005; 94150; 96372; 96374; 96376; 99285; C1713; G0378; J0131; J1100; J1200; J1580; J2250; J2270; J2370; J2405; J3010; J3370; J7030